=== PATIENT | male | born 1965 | race American Indian/Alaskan Native ===

== ENCOUNTER 2018-05-25 08:17 | Outpatient (CLI) | payer OTHER ==
--- NOTE | 2018-05-25 21:57 | XRay Report ---
PROCEDURE: XR KNEE BILAT 1-2V TECHNIQUE: 4 views obtained of bilateral knees HISTORY: DISABILITY EXAM COMPARISONS: No priors FINDINGS: Small bony exostosis arising from the medial femoral condyle of the left femur consistent with small osteochondroma. The joint spaces of the left knee are preserved. Atherosclerotic calcifications noted. No evidence of joint effusion. Minimal osteoarthritic changes of the right knee with minimal narrowing of the medial tibiofemoral abhay int space and small osteophytes at the medial tibial and femoral condyles. No evidence of joint effusion. Atherosclerotic calcifications. IMPRESSION: Minimal osteoarthritic changes of the right knee with minimal narrowing of the medial tib iofemoral joint space Small bony exostosis arising from the medial femoral condyle of the left femur consistent with small osteochondroma. Atherosclerotic peripheral vascular disease. This document is electronically signed by Man Nava MD., May 25 2018 09:54:55 PM ET
--- NOTE | 2018-05-25 22:05 | XRay Report ---
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 Joint spaces are preserved. No acute fracture or dislocation. The pubic rami are intact. Sacrum within normal limits. IMPRESSION: Mild degenerative changes of bilateral hips with preservation of the joint spaces.. This document is electronically signed by Man Nava MD., May 25 2018 10:03:02 PM ET
== END 2018-05-25 08:18 | disposition home or self-care (01) ==
LOC: XRAY 08:17
PROVIDERS: ATTEND Internal Medicine
DX: M16.0 Bilateral primary osteoarthritis of hip (principal); I73.9 Peripheral vascular disease, unspecified; F73 Profound intellectual disabilities; G47.30 Sleep apnea, unspecified; I12.9 Hypertensive chronic kidney disease with stage 1 through stage 4 chronic kidney disease, or unspecified chronic kidney disease; N18.3 Chronic kidney disease, stage 3 (moderate); Z88.0 Allergy status to penicillin
CPT/HCPCS: 73521